=== PATIENT | male | born 1970 | race Two or more races ===

== ENCOUNTER 2020-11-11 06:59 | Emergency (ER) | payer SELFPAY ==
[~2020-11-11] VITALS: Ht 180.3 cm; Wt 70.3 kg
[2020-11-11 06:59] VITALS: BP 92/61
--- NOTE | 2020-11-11 07:06 | NUR ---
PER [id number], [employer] WAS NOT ON SCENE, BUT EN-ROUTE TO [facility]
[2020-11-11] MEDS ORDERED: CEPHALEXIN MONOHYDRATE 500 MG CAPSULE PO ONE ×2 (07:30→07:37)
[2020-11-11] MEDS ORDERED: HYDROCODONE/APAP 5/325MG TABLET PO ONE (07:30)
[2020-11-11] MEDS ORDERED: TDAP [DIPH/PERTUSSIS/TET] 0.5 ML VIAL IM ONE (07:30)
--- NOTE | 2020-11-11 07:34 | NUR ---
[employer] AT BEDSIDE TALKING TO PATIENT.
[2020-11-11] MEDS ORDERED: HYDROCODONE/APAP 5/325MG TABLET ONE (07:37)
[2020-11-11] MEDS ORDERED: CEPH500C2 PO (08:08)
[2020-11-11] MEDS ORDERED: IBUP-1957 PO (08:08)
--- NOTE | 2020-11-11 08:58 | NUR ---
PROVIDED W/ WOUND CARE. PT REFUSING TO LEAVE AND WANTS TO SLEEP. PT ESCORTED OUT. MEDICALLY CLEARED. PROVIDED W/ CRUTCHES FOR AMBULATION. DISSCHARGE IN STABLE CONDITION.
== END 2020-11-11 09:00 | disposition home or self-care (01) ==
LOC: ER 07:03
DX: S81.812A Laceration without foreign body, left lower leg, initial encounter (principal); S50.11XA Contusion of right forearm, initial encounter; F15.10 Other stimulant abuse, uncomplicated; Y08.89XA Assault by other specified means, initial encounter; Y93.89 Activity, other specified; Y92.89 Other specified places as the place of occurrence of the external cause; Y99.8 Other external cause status
CPT/HCPCS: 12002; 99283; A6403